=== PATIENT | male | born 1965 | race Two or more races ===

== ENCOUNTER 2024-12-19 09:00 | Inpatient (IN) | payer OTHER ==
[~2024-12-19] VITALS: Ht 30.5 cm; Wt 124.7 kg
[2024-12-19] MEDS ORDERED: COZAAR50 MG PO (09:49)
[2024-12-19] MEDS ORDERED: AVALIDE 300-121 EACH (09:50)
[2024-12-19] MEDS ORDERED: LEXAPRO20 MG PO (09:50)
[2024-12-19] MEDS ORDERED: TOPROL XL25 M1 PO (09:50)
[2024-12-19] MEDS ORDERED: ZYLOPRIM100 M1 (09:50)
[2024-12-19] MEDS ORDERED: TRANXENE (09:50)
[2024-12-19] MEDS ORDERED: TAMS0.4C PO (09:50)
[2024-12-24] MEDS ORDERED: METRONIDAZOLE/SODIUM CHLORIDE 500 MG/100 ML PIGGYBACK IV ONE (11:05)
[2024-12-24] MEDS ORDERED: levoFLOXacin IN DEXTROSE 5 % 5 MG/ML PIGGYBAG IV ONE (11:05)
[2024-12-24] MEDS ORDERED: BUPIVACAINE HCL/MPF 0.5% 30ML VIAL ONE (14:32)
[2024-12-24] MEDS ORDERED: LIDOCAINE HCL 1%/EPINEPHRINE 10 ML VIAL IJ ONE (14:33)
[2024-12-24] MEDS ORDERED: 0.9 % SODIUM CHLORIDE 1,000 ML IV SCH (14:45)
[2024-12-24] MEDS ORDERED: OxyCODONE HCL 5 MG TABLET (ROXICODONE) PO PRN (14:45)
[2024-12-24] MEDS ORDERED: ONDANSETRON HCL 2 MG/ML VIAL IV PRN (14:45)
[2024-12-24] MEDS ORDERED: DEXTROSE 50 % IN WATER 0.5 G/ML DISP.SYRIN IV PRN (14:45)
[2024-12-24] MEDS ORDERED: MORPHINE SULFATE 4 MG/ML CARTRIDGE IV PRN (14:45)
[2024-12-24] MEDS ORDERED: HYOSCYAMINE SULFATE 0.125 MG TAB.SUBL SL SCH (17:00)
[2024-12-24] MEDS ORDERED: METRONIDAZOLE/SODIUM CHLORIDE 500 MG/100 ML PIGGYBACK IV SCH (17:00)
[2024-12-24] MEDS ORDERED: GABAPENTIN 300 MG CAPSULE PO SCH (17:00)
[2024-12-24] MEDS ORDERED: SUGAMMADEX SODIUM 200 MG/2 ML VIAL IV ONE (17:15)
[2024-12-24] MEDS ORDERED: ENALAPRILAT DIHYDRATE 1.25 MG/ML VIAL IV PRN (17:15)
[2024-12-24] MEDS ORDERED: DIPHENHYDRAMINE HCL 25 MG CAPSULE PO PRN (17:15)
[2024-12-24 19:52] LABS: BASO % 0.2 % (0.1-1.2); EOS # 0.00 (0.04-0.54); EOS % 0.0 % (0.7-7.0); LYMPH # 0.59 (1.18-3.74); LYMPH % 4.3 % (19.3-53.1); MEAN PLATELET VOLUME 9.20 fl (9.4-12.4); MONO # 0.50 (0.24-0.82); MONO % 3.6 % (4.7-12.5); NEUT # 12.55 (1.56-6.13); NEUT % 91.6 % (34.0-71.1); RED CELL DISTRIBUTION WIDTH 13.2 % (11.6-14.4)
[2024-12-24] MEDS ORDERED: ACETAMINOPHEN 500 MG GEL..CAP PO SCH (20:00)
[2024-12-24 20:19] LABS: BUN CREA RATIO 15.0 (7.0-25.0); CREATININE SERUM 0.85 mg/dL (0.70-1.30); GFR 92.26; GLUCOSE FASTING 155.0 mg/dL (65-100); OSMOLALITY SERUM 283.0 MOSM/KG (275-295)
[2024-12-24] MEDS ORDERED: HYOSCYAMINE SULFATE 0.125 MG TAB.SUBL ONE (20:45)
[2024-12-24] MEDS ORDERED: GABAPENTIN 300 MG CAPSULE PO ONE (20:46)
[2024-12-24] MEDS ORDERED: ACETAMINOPHEN 500 MG GEL..CAP PO ONE (20:46)
[2024-12-24] MEDS ORDERED: CELECOXIB 200 MG CAPSULE PO ONE (20:47)
[2024-12-24] MEDS ORDERED: FAMOTIDINE/PF 20 MG/2 ML VIAL ONE (20:48)
[2024-12-24] MEDS ORDERED: TAMSULOSIN HCL 0.4 MG CAP PO ONE (20:48)
[2024-12-24] MEDS ORDERED: CELECOXIB 200 MG CAPSULE PO SCH (21:00)
[2024-12-24] MEDS ORDERED: TAMSULOSIN HCL 0.4 MG CAP PO SCH (21:00)
[2024-12-24] MEDS ORDERED: PATIENTS OWN MEDICATION (MEDICAMENTO EN PISO) PO SCH (21:00)
[2024-12-24] MEDS ORDERED: FAMOTIDINE/PF 20 MG/2 ML VIAL IV PUSH SCH (21:00)
[2024-12-25] VITALS (9 sets, daily range): BP systolic 100–108; BP diastolic 62–64; O2SAT 90–98
[2024-12-25] MEDS ORDERED: PATIENTS OWN MEDICATION (MEDICAMENTO EN PISO) PO SCH ×2 (06:00→09:00)
[2024-12-25 06:43] LABS: BASO % 0.1 % (0.1-1.2); EOS # 0.00 (0.04-0.54); EOS % 0.0 % (0.7-7.0); LYMPH # 0.50 (1.18-3.74); LYMPH % 4.5 % (19.3-53.1); MEAN PLATELET VOLUME 9.60 fl (9.4-12.4); MONO # 0.40 (0.24-0.82); MONO % 3.6 % (4.7-12.5); NEUT # 10.05 (1.56-6.13); NEUT % 91.3 % (34.0-71.1); RED CELL DISTRIBUTION WIDTH 13.1 % (11.6-14.4)
[2024-12-25 07:09] LABS: BUN CREA RATIO 16.0 (7.0-25.0); CREATININE SERUM 0.88 mg/dL (0.70-1.30); GFR 88.64; GLUCOSE FASTING 126.0 mg/dL (65-100); OSMOLALITY SERUM 280.0 MOSM/KG (275-295)
[2024-12-25] MEDS ORDERED: IRBESARTAN 150 MG TABLET PO SCH (09:00)
[2024-12-25] MEDS ORDERED: METOPROLOL SUCCINATE 25 MG TAB.SR.24H PO SCH (09:00)
[2024-12-25] MEDS ORDERED: ALLOPURINOL 300 MG TABLET PO SCH (09:00)
[2024-12-25] MEDS ORDERED: HYDROCHLOROTHIAZIDE 12.5 MG CAPSULE PO SCH (09:00)
[2024-12-25] MEDS ORDERED: ENOXAPARIN SODIUM 40 MG/0.4 ML SYRINGE SUBCUTANEO SCH (17:00)
[2024-12-26] VITALS (10 sets, daily range): BP systolic 92–119; BP diastolic 51–83; O2SAT 90–100
[2024-12-26 06:15] LABS: BASO % 0.3 % (0.1-1.2); EOS # 0.02 (0.04-0.54); EOS % 0.3 % (0.7-7.0); LYMPH # 1.53 (1.18-3.74); LYMPH % 23.5 % (19.3-53.1); MEAN PLATELET VOLUME 9.70 fl (9.4-12.4); MONO # 0.48 (0.24-0.82); MONO % 7.4 % (4.7-12.5); NEUT # 4.46 (1.56-6.13); NEUT % 68.3 % (34.0-71.1); RED CELL DISTRIBUTION WIDTH 13.2 % (11.6-14.4)
[2024-12-26 07:02] LABS: BUN CREA RATIO 18.0 (7.0-25.0); CREATININE SERUM 1.0 mg/dL (0.70-1.30); GFR 76.48; GLUCOSE FASTING 96.0 mg/dL (65-100); OSMOLALITY SERUM 283.0 MOSM/KG (275-295)
[2024-12-26] MEDS ORDERED: ENOXAPARIN SODIUM 40 MG/0.4 ML SYRINGE SUBCUTANEO SCH (09:00)
[2024-12-26] MEDS ORDERED: POTASSIUM PHOS,M-BASIC-D-BASIC 3 MM/ML VIAL IV ONE (11:00)
[2024-12-27 00:14] VITALS: BP 112/64; O2SAT 100
[2024-12-27 05:39] VITALS: O2SAT 97
[2024-12-27 09:30] VITALS: O2SAT 97
[2024-12-27] MEDS ORDERED: HYOSCYAMINE0.125 M1 SL (10:25)
[2024-12-27] MEDS ORDERED: PEPCID AC20 MG PO (10:25)
[2024-12-27] MEDS ORDERED: TRAM1TAB98 PO (10:26)
[2024-12-27 11:10] VITALS: BP 107/67; O2SAT 98
== END 2024-12-27 11:33 | disposition home or self-care (01) | DRG 330 ==
LOC: SURG 12-24 07:00 → O/R 12-24 10:00 → SURG 12-24 10:00
PROVIDERS: Internal Medicine Geriatric Medicine; ADMIT Surgery; ATTEND Surgery
PROC: 0DBP4ZZ Excision of Rectum, Percutaneous Endoscopic Approach (ICD-10-PCS; 2024-12-24)
PROC: 0DJD8ZZ Inspection of Lower Intestinal Tract, Via Natural or Artificial Opening Endoscopic (ICD-10-PCS; 2024-12-24)
PROC: 0DTN4ZZ Resection of Sigmoid Colon, Percutaneous Endoscopic Approach (ICD-10-PCS; principal; 2024-12-24 07:00)
PROC: 4A12X4Z Monitoring of Cardiac Electrical Activity, External Approach (ICD-10-PCS; 2024-12-25)
DX: K57.20 Diverticulitis of large intestine with perforation and abscess without bleeding (principal); K56.51 Intestinal adhesions [bands], with partial obstruction; R10.32 Left lower quadrant pain; R19.4 Change in bowel habit; I10 Essential (primary) hypertension; E03.9 Hypothyroidism, unspecified; G47.30 Sleep apnea, unspecified

== ENCOUNTER → 2025-01-05 | Emergency (ER) | payer OTHER ==
[~2025-01-05] VITALS: Ht 180.3 cm; Wt 124.7 kg
[~2025-01-05] MED LIST: AVALIDE 300-121 EACH; CLEOCIN HCL300 MG PO; CLINDAMYCIN PHOSPHATE 150 MG/ML (600mg) IV STA; CLINDAMYCIN PHOSPHATE 150 MG/ML (900mg) ONE; CLORAZEPATE DIP15 MG; COZAAR50 MG PO; HYOSCYAMINE0.125 M1 SL; INTESTINEX680 M1 PO; LEVOFLOXACIN500 MG PO; LEVOTHYROXINE25 MCG; LEXAPRO20 MG; LEXAPRO20 MG PO; PEPCID AC20 MG PO; TAMS0.4C; TAMS0.4C PO; TOPROL XL25 M1 PO; TRAM1TAB98 PO; TRANXENE; ZYLOPRIM100 M1
[2025-01-05 16:00] LABS: ERYTHROCYTE SEDIMENTATION RATE 53 mm/hr (0-20)
[2025-01-05 16:01] LABS: BASO % 0.6 % (0.1-1.2); EOS # 0.04 (0.04-0.54); EOS % 0.5 % (0.7-7.0); LYMPH # 1.51 (1.18-3.74); LYMPH % 17.3 % (19.3-53.1); MEAN PLATELET VOLUME 9.10 fl (9.4-12.4); MONO # 0.55 (0.24-0.82); MONO % 6.3 % (4.7-12.5); NEUT # 6.54 (1.56-6.13); NEUT % 75.1 % (34.0-71.1); RED CELL DISTRIBUTION WIDTH 13.0 % (11.6-14.4)
[2025-01-05 16:47] LABS: ALT/SGPT 41.0 U/L (12-78); AST/SGOT 22.0 U/L (15-37); BILIRUBIN TOTAL 0.38 mg/dL (0.3-1.2); BUN CREA RATIO 27.0 (7.0-25.0); CREATININE SERUM 0.93 mg/dL (0.70-1.30); GFR 83.16; GLOBULINA 3.7 G/DL (2.4-3.5); GLUCOSE FASTING 89.0 mg/dL (65-100); OSMOLALITY SERUM 278.0 MOSM/KG (275-295)
== END | disposition home or self-care (01) ==
LOC: ER 13:17
PROVIDERS: General Practice
DX: T81.49XA Infection following a procedure, other surgical site, initial encounter (principal); F41.8 Other specified anxiety disorders; I10 Essential (primary) hypertension; E03.8 Other specified hypothyroidism; Z88.0 Allergy status to penicillin
CPT/HCPCS: 36415; 96365; 99282; J3490

== ENCOUNTER → 2025-02-05 | Emergency (ER) | payer OTHER ==
[~2025-02-05] VITALS: Ht 180.3 cm; Wt 127.0 kg
[~2025-02-05] MED LIST changes: +0.9 % SODIUM CHLORIDE 1,000 ML IV ONE; -CLINDAMYCIN PHOSPHATE 150 MG/ML (600mg) IV STA; -CLINDAMYCIN PHOSPHATE 150 MG/ML (900mg) ONE; +FAMOTIDINE/PF 20 MG/2 ML VIAL IV ONE; +FAMOTIDINE/PF 20 MG/2 ML VIAL ONE; +HYOSCYAMINE SULFATE 0.125 MG TAB.SUBL ONE; +KETOROLAC TROMETHAMINE 30 MG VIAL IV ONE; +KETOROLAC TROMETHAMINE 30 MG VIAL ONE
[2025-02-05 06:55] LABS: BASO % 0.4 % (0.1-1.2); EOS # 0.01 (0.04-0.54); EOS % 0.1 % (0.7-7.0); LYMPH # 1.02 (1.18-3.74); LYMPH % 13.1 % (19.3-53.1); MEAN PLATELET VOLUME 9.60 fl (9.4-12.4); MONO # 0.32 (0.24-0.82); MONO % 4.1 % (4.7-12.5); NEUT # 6.34 (1.56-6.13); NEUT % 81.8 % (34.0-71.1); RED CELL DISTRIBUTION WIDTH 13.4 % (11.6-14.4)
[2025-02-05 07:13] LABS: INR 1.03
[2025-02-05 07:22] LABS: ALT/SGPT 30.0 U/L (12-78); AST/SGOT 15.0 U/L (15-37); BILIRUBIN TOTAL 0.41 mg/dL (0.3-1.2); BUN CREA RATIO 14.0 (7.0-25.0); CREATININE SERUM 1.2 mg/dL (0.70-1.30); GFR 61.97; GLOBULINA 3.9 G/DL (2.4-3.5); GLUCOSE FASTING 141.0 mg/dL (65-100); OSMOLALITY SERUM 283.0 MOSM/KG (275-295)
[2025-02-05 08:17] LABS: URINE APPEARANCE Clear; URINE BILIRRUBIN Negative (NEGATIVE); URINE BLOOD Negative; URINE COLOR Yellow; URINE GLUCOSE Negative (NEGATIVE); URINE KETONE Trace (NEGATIVE); URINE LEUKOCYTE Negative; URINE NITRATE Negative; URINE PROTEIN Negative (NEGATIVE); URINE UROBILINOGEN 0.2 E.U./dl
[2025-02-05 08:21] LABS: URINE BACTERIA 12.5 uL (0.0-1933); URINE EPITHELIAL CELLS 6.2 uL (0.0-38.8); URINE RBC 5.9 uL (0.0-20.8); URINE WBC 8.5 uL (0.0-23.2)
[2025-02-05 08:34] LABS: URINE CAST 0.70 uL (0.0-1.40)
== END | disposition home or self-care (01) ==
LOC: ER 05:08
PROVIDERS: General Practice
DX: R10.A2 Flank pain, left side (principal); K29.70 Gastritis, unspecified, without bleeding; R10.9 Unspecified abdominal pain; Z88.0 Allergy status to penicillin; E03.8 Other specified hypothyroidism; I10 Essential (primary) hypertension